=== PATIENT | female | born 1955 ===

== ENCOUNTER 2018-01-15 07:01 | Day surgery (SDC) | payer MEDICAID ==
[2018-01-14 11:35] VITALS: BMI 28.3
[2018-01-15] MEDS ORDERED: Lactated Ringer's 1,000 ML IV ONE (10:00)
--- NOTE | 2018-01-15 10:00 | CP.SDSHP ---
Same Day Surgery H & P - History Proposed Procedure: colonoscopy Pre-Op Diagnosis: occult blood in stool - Previous Medical/Surgical History Cardiac: Hypertension Endocrine/Metabolic: Diabetes Previous Surgical History: back surgery - Allergies Allergies: Allergies No Known Allergies Allergy (Verified 01/14/18 11:35) - Current Medications Current Medications: reviewed, per reconciliation - Physical Exam General Appearance: wdwn nad Vital Signs: Vital Signs 01/15/18 07:50 Temperature 97 F L Pulse Rate 87 Respiratory 17 Rate Blood Pressure 155/70 H O2 Sat by Pulse 98 Oximetry Mental Status: Alert & Oriented x3 Heart: WNL Lungs: WNL GI: WNL - {Optional Preform as Required} Abdomen: WNL - Impression Impression: occult blood in stool Pt. Evaluated Today:Candidate for Anesthesia & Procedure: Yes - Date & Time Date: 01/15/18 Time: 10:06 Short Stay Discharge - Short Stay Discharge Admitting Diagnosis/Reason for Visit: OTHER FECAL ABNORMALITIES Disposition: HOME/ ROUTINE Referrals: Dinesh Cooney MD [Primary Care Provider] -
[2018-01-15] MEDS ORDERED: Propofol 10 mg/ml Inj (20 ML) ONE (10:13)
[2018-01-15] MEDS ORDERED: Lidocaine Hydrochloride 5 ML INJ ONE (10:33)
[2018-01-15 11:14] VITALS: TEMP 96.7; O2SAT 100
[2018-01-15 14:38] VITALS: BP 167/70; PULSE 62; RESP 17
== END 2018-01-15 12:05 | disposition home or self-care (01) ==
LOC: C.ENDO 07:01
PROVIDERS: ATTEND Internal Medicine Gastroenterology
DX: D12.2 Benign neoplasm of ascending colon (principal); K64.0 First degree hemorrhoids; I10 Essential (primary) hypertension; E11.9 Type 2 diabetes mellitus without complications
CPT/HCPCS: 45380; 82948; 88305; J2704; J7120

== ENCOUNTER 2018-06-06 16:05 | Emergency (ER) | payer MEDICAID ==
[2018-06-06 16:06] VITALS: BMI 28.3
[2018-06-06] MEDS ORDERED: Sodium Chloride 0.9% 1,000 ML IV ONE (18:28)
[2018-06-06] MEDS ORDERED: Sodium Chloride 0.9% 1,000 ML ONE (18:35)
[2018-06-06 18:54] LABS: ALBUMIN 4.1 g/dL (3.5-5.0); ALT/SGPT 42 U/L (9-52); AST/SGOT 97 U/L (14-36); BLOOD UREA NITROGEN 26 mg/dL (7-17); CALCIUM 9.7 mg/dl (8.6-10.4); GFR NON-AFRICAN AMERICAN > 60; LIPASE 503 U/L (23-300)
[2018-06-06 18:57] LABS: HEMOGLOBIN 14.8 g/dL (11.0-16.0); MEAN CORPUSCULAR HEMOGLOBIN 33.2 pg (27.0-31.0); MEAN CORPUSCULAR HGB CONC 34.2 g/dL (33.0-37.0); MEAN PLATELET VOLUME 10.8 fL (7.2-11.7); RBC 4.46 Mil/uL (3.80-5.20); RED CELL DISTRIBUTION WIDTH 13.5 % (11.5-14.5); WHITE BLOOD COUNT 5.8 K/uL (4.8-10.8)
[2018-06-06 19:01] LABS: PLATELET COUNT 75 K/uL (130-400)
[2018-06-06 19:14] LABS: SQUAMOUS EPITHIAL 2 /hpf (0-5); URINE BILIRUBIN NEGATIVE (NEGATIVE); URINE BLOOD NEGATIVE (NEGATIVE); URINE CLARITY Clear (Clear); URINE COLOR Amber (YELLOW); URINE GLUCOSE (UA) NORMAL (Normal); URINE LEUKOCYTE ESTERASE NEG Leu/uL (Negative); URINE PROTEIN NEGATIVE (NEGATIVE)
--- NOTE | 2018-06-06 19:51 | C.PDOC ---
History Of Present Illness 63 y/o female presents to the ED complaining of abdominal pain for 2 days. Patient also had vomiting when the pain started. Today she developed diarrhea, which was watery and non-bloody. Additionally, patient has had fever on and off, family has not documented temperature. No recent travel. No sick contacts. Time Seen by Provider: 06/06/18 18:15 Chief Complaint (Nursing): GI Problem History Per: Patient History/Exam Limitations: no limitations Onset/Duration Of Symptoms: Days (2) Current Symptoms Are (Timing): Still Present Location Of Pain/Discomfort: Suprapubic Radiation Of Pain To:: None Past Medical History Reviewed: Historical Data, Nursing Documentation, Vital Signs Vital Signs: Last Vital Signs Temp 99 F 06/06/18 16:32 Pulse 99 H 06/06/18 16:32 Resp 20 06/06/18 16:32 BP 141/84 06/06/18 16:32 Pulse Ox 95 06/06/18 16:32 - Medical History PMH: Anemia, Arthritis, HTN, Rheumatoid Arthritis Denies: Chronic Kidney Disease Surgical History: Back Surgery (Laminectomy), Endoscopy Family History: States: No Known Family Hx - Social History Hx Alcohol Use: No Hx Substance Use: No - Immunization History Hx Tetanus Toxoid Vaccination: No Hx Influenza Vaccination: Yes Hx Pneumococcal Vaccination: Yes Review Of Systems Constitutional: Positive for: Fever Cardiovascular: Negative for: Chest Pain Respiratory: Negative for: Shortness of Breath Gastrointestinal: Positive for: Abdominal Pain, Diarrhea. Negative for: Vomiting (resolved), Hematochezia, Hematemesis Neurological: Negative for: Weakness, Numbness Physical Exam - Physical Exam Appears: Non-toxic, No Acute Distress Skin: Warm, Dry Head: Atraumatic, Normacephalic Eye(s): bilateral: Normal Inspection, PERRL, EOMI Oral Mucosa: Moist Neck: Normal ROM Chest: Symmetrical Cardiovascular: Rhythm Regular, No Murmur Respiratory: Normal Breath Sounds, No Rales, No Rhonchi, No Wheezing Gastrointestinal/Abdominal: Soft, Tenderness (Mild diffuse abdominal tenderness), No Guarding, No Rebound Back: No CVA Tenderness, No Vertebral Tenderness Extremity: Bilateral: Atraumatic, Normal Color And Temperature, Normal ROM Neurological/Psych: Oriented x3, Normal Speech ED Course And Treatment - Laboratory Results Result Diagrams: 06/06/18 18:31 06/06/18 18:33 O2 Sat by Pulse Oximetry: 95 (RA) Pulse Ox Interpretation: Normal - CT Scan/US CT Abd/Pelvis Other Rad Studies (CT/US): Read By Radiologist, Radiology Report Reviewed CT/US Interpretation: Name:CARLA OCONNOR Exam Date:Jun 06, 2018 8:36:25 PM EST. Modality Type:CT\SR. Description:CT - ABDOMEN AND PELVIS. Gender:F Laterality:Not applicable. :57 Referring Physician:FLACA ROLLE MD CLINICAL HISTORY: Abdominal pain. TECHNIQUE: Multiple axial, coronal, sagittal CT images were obtained through the abdomen and pelvis after administration of intravenous contrast material. COMMENTS: The liver is of uniform attenuation without mass or defect. There is no intra or extrahepatic biliary ductal dilatation. The spleen is normal. The gallbladder is distended. Phrygian cap is seen. No gallstones are identified. Consider correlation with RUQ ultrasound or hepatobiliary scan. The pancreas is of normal contour and attenuation characteristics. There is no evidence of adrenal mass. Both kidneys demonstrate prompt and equal nephrograms. The kidneys are normal in size, shape and configuration. There is no evidence of renal or ureteral mass. No renal or ureteral calculi are identified. There is no hydroureter or hydronephrosis. No evidence for appendicitis. There is circumferential wall thickening involving duodenum and loops of jejunum compatible with enteritis. No evidence for small or large bowel obstruction. There is no evidence of abdominal ascites or lymphadenopathy. The uterus and ovaries are unremarkable. There is no evidence of intrinsic or extrinsic bladder mass. There is no pelvic ascites or lymphadenopathy. Images of the lung bases show no evidence of pleural or parenchymal mass. There are no pleural effusions. Small hiatal hernia is seen. The bony structures are free of lytic or blastic lesions. Status post posterior fusion of L4-L5. IMPRESSION: 1. The gallbladder is distended. Phrygian cap is seen. Consider correlation with RUQ ultrasound or hepatobiliary scan. 2. Enteritis. 3. Small hiatal hernia. 4. Status post posterior fusion of L4-L5. . Electronically signed on Jun 06, 2018 9:41:58 PM EST by: Jovany Urena M.D., MICAELA Certified By ABR & CBCCT. Fellowship Trained MRI and CT Specialist Medical Decision Making Medical Decision Making: Impression: Abdominal pain, Diarrhea Plan: --Blood work --Urinalysis --Flu swab --IV fluids, 1L --4 mg IV Zofran --CT Abdomen/Pelvis with IV contrast Progress: Labs reviewed, lipase 503. CT reviewed. On re-eval, patient states that she feels better and would like to go home. All results discussed with patient and family. Will write Rx for zofran PO for nausea. Likely gastroenteritis. Disposition - Disposition Disposition: HOME/ ROUTINE Disposition Time: 23:07 Condition: STABLE Additional Instructions: CARLA JAMESES, thank you for letting us take care of you today. Your provider w as Flaca Rolle MD and you were treated for HIGH SUGAR/VOMITING. The emergency medical care you received today was directed at your acute symptoms. If you were prescribed any medication, please fill it and take as directed. It may take several days for your symptoms to resolve. Return to the Emergency Department if your symptoms worsen, do not improve, or if you have any other problems. Please contact your doctor or call one of the physicians/clinics you have been referred to that are listed on the Patient Visit Information form that is included in your discharge packet. Bring any paperwork you were given at discharge with you along with any medications you are taking to your follow up visit. Our treatment cannot replace ongoing medical care by a primary care provider outside of the emergency department. Thank you for allowing the [facility] team to be part of your care today. If you had an X-Ray or CT scan: A Radiologist will review the ED reading if any change in treatment is needed we will contact you. If you had a blood, urine, or wound culture: It will take several days for the results, if any change in treatment is needed we will contact you. If you had an STI test: It will take 48 hours for the results. Please call after 1 week if you have not heard back. Prescriptions: Ondansetron ODT [Zofran ODT] 4 mg PO Q8H #9 odt Instructions: Viral Gastroenteritis, Adult (DC) Forms: Tengaged (Urdu) Print Language: TRISTANIAN - Clinical Impression Clinical Impression: Gastroenteritis - Scribe Statement The provider has reviewed the documentation as recorded by the Thalia Millard Provider Attestation: All medical record entries made by the Seanibzion were at my direction and personally dictated by me. I have reviewed the chart and agree that the record accurately reflects my personal performance of the history, physical exam, medical decision making, and the department course for this patient. I have also personally directed, reviewed, and agree with the discharge instructions and disposition.
[2018-06-06] MEDS ORDERED: Iodixanol 320 MG/ML 100 ML BOTTLE IV ONE (20:13)
[2018-06-06 21:21] VITALS: RESP 16
[2018-06-06 22:06] VITALS: O2SAT 95
[2018-06-06 23:37] VITALS: BP 125/73; PULSE 93; TEMP 98.3
--- NOTE | 2018-06-07 14:23 | CT ---
Date of service: 06/06/2018 PROCEDURE: CT Abdomen and Pelvis with contrast HISTORY: abd pain COMPARISON: Abdominal ultrasound performed 01/09/18 TECHNIQUE: Contrast dose: 100 mL Visipaque 320 IV Radiation dose: Total exam DLP = 978.57 mGy-cm. This CT exam was performed using one or more of the following dose reduction techniques: Automated exposure control, adjustment of the mA and/or kV according to patient size, and/or use of iterative reconstruction technique. FINDINGS: LOWER THORAX: No visible consolidation, pleural effusion, or pneumothorax. LIVER: Nodular hepatic contour. GALLBLADDER AND BILE DUCTS: Gallbladder distension. Evidence of phyrgian cap. No calcified gallstones identified. PANCREAS: Fatty atrophy. SPLEEN: Unremarkable. ADRENALS: Unremarkable. KIDNEYS AND URETERS: The kidneys enhance symmetrically. No hydronephrosis or obstructing calculus identified. VASCULATURE: No aortic aneurysm. No atherosclerotic calcification or mural plaque present. BOWEL: Stomach is nondistended. Lack of oral contrast limits evaluation for bowel pathology. Bowel loops appear within normal limits of caliber without evidence of obstruction. APPENDIX: No secondary signs of acute appendicitis. PERITONEUM: No significant free fluid. No definite free air. LYMPH NODES: No bulky adenopathy identified. BLADDER: Unremarkable. REPRODUCTIVE: Uterus is present. BONES: Posterior lumbar fusion, L4-L5. Diffuse osseous demineralization. Sclerosis. OTHER FINDINGS: None. IMPRESSION: Gallbladder distension. Evidence of phyrgian cap. No calcified gallstones identified. Recommend clinical correlation and right upper quadrant ultrasound if indicated. Nodular hepatic contour may be seen in the setting of cirrhosis. Additional incidental findings as above. Preliminary impression was provided by [facility]. Study marked for PA review.
== END 2018-06-06 23:37 | disposition home or self-care (01) ==
LOC: C.ER 16:05
DX: K52.9 Noninfective gastroenteritis and colitis, unspecified (principal); I10 Essential (primary) hypertension; M06.9 Rheumatoid arthritis, unspecified
CPT/HCPCS: 74177; 80053; 81001; 82948; 83690; 85027; 87804; 96374; 96375; 99284; J2405; J2765; J7030; Q9967